=== PATIENT | male | born 1970 | race American Indian/Alaskan Native ===

== ENCOUNTER 2017-12-08 12:14 | Day surgery (SDC) | payer BC ==
[2017-12-08] MEDS ORDERED: NACL 0.9% 1000 ML 1,000 ML ONE (12:45)
[2017-12-08] MEDS ORDERED: DIPRIVAN 10 MG/ML IV ONE ×3 (13:41)
--- NOTE | 2017-12-08 13:47 | Anesthesia Consultation ---
Anesthesia Consult and Med Hx Date of service: 12/08/17 - Airway Anesthetic Teeth Evaluation: Good ROM Head & Neck: Adequate Mallampati Class: Class III Intubation Access Assessment: Possibly Difficult - Pre-Operative Health Status ASA Pre-Surgery Classification: ASA2 Proposed Anesthetic Plan: MAC - Cardiovascular System Hx Hypertension: Yes Hx Coronary Artery Disease: No (high cholesterol) - Endocrine Hx Hyperthyroidism: Yes (s/p thyroidectomy) - Other Systems Hx Obesity: Yes (BMI 38.4)
--- NOTE | 2017-12-08 13:48 | Anesthesia Day of Surgery ---
Anesthesia Day of Surgery - Day of Surgery Patient Examined: Yes Patient H&P Reviewed: Yes Patient is NPO: Yes
[2017-12-08] MEDS ORDERED: NACL 0.9% 1000 ML 1,000 ML IV SCH (14:00)
--- NOTE | 2017-12-08 14:27 | Post Operative Note ---
Pre-op diagnosis: Anemia Post-op diagnosis: same Findings: Normal colonoscopy to mid-ascending colon Procedure: Colonoscopy to mid-ascending colon Anesthesia: ALTAF Surgeon: GEOFFREY [place] Estimated blood loss: none Pathology: none Condition: stable Disposition: same day
[2017-12-08 14:55] VITALS: BP 119/85
--- NOTE | 2017-12-10 12:25 | Operative Report ---
Operative Report Operative Report: Date of procedure: 12/08/2017 Preoperative diagnosis: Anemia Postoperative diagnosis: 1) same as above 2) normal colonoscopy to mid ascending colon Procedure: Colonoscopy to mid ascending colon Surgeon: Jaylen Delgado M.D. Findings: See postoperative diagnoses Anesthesia: MAC EBL: None Pathology: None Description of procedure: Patient was placed in a left lateral decubitus position. He was then sedated intravenously by anesthesia. The colonoscope was inserted into the patient's rectum and the scope was advanced retrograde while directly visualizing his colonic lumen. The prep was adequate. Despite application of abdominal pressure in several sites and repositioning the patient , the colonoscope could not be advanced proximal to his mid ascending colon. I could see down the proximal descending colon and nearly to the cecum but a cecal tumor cannot be completely excluded. The scope was then slowly withdrawn with slow, careful, circumferential visualization of his colonic mucosa. The examination included a retroflex view of his distal rectum. No pathological findings were noted. Insufflated air was aspirated and the scope withdrawn. Patient tolerated the procedure well. He was recovered in the GI suite.
== END 2017-12-08 12:15 | disposition home or self-care (01) ==
LOC: GIO 12:14
PROVIDERS: ATTEND Surgery
DX: D64.9 Anemia, unspecified (principal); I10 Essential (primary) hypertension; E78.00 Pure hypercholesterolemia, unspecified; E05.90 Thyrotoxicosis, unspecified without thyrotoxic crisis or storm; E66.9 Obesity, unspecified; Z68.38 Body mass index [BMI] 38.0-38.9, adult; Z98.890 Other specified postprocedural states
CPT/HCPCS: 45378; J2704; J7030

== ENCOUNTER 2017-12-31 05:58 | Day surgery (SDC) | payer BC ==
[2017-12-31] MEDS ORDERED: NACL BACTERIOSTATIC INFILTRATI ONE (06:41)
[2017-12-31] MEDS ORDERED: NACL 0.9% 1000 ML 1,000 ML IV SCH (07:00)
[2017-12-31] MEDS ORDERED: MARCAINE 0.25% INFILTRATI ONE ×2 (07:16→08:21)
[2017-12-31] MEDS ORDERED: ANCEF/STERILE WATER 2 GM/20 ML IV NR (07:30)
--- NOTE | 2017-12-31 07:31 | Anesthesia Day of Surgery ---
Anesthesia Day of Surgery - Day of Surgery Patient Examined: Yes Patient H&P Reviewed: Yes Patient is NPO: Yes
--- NOTE | 2017-12-31 07:32 | Anesthesia Consultation ---
Anesthesia Consult and Med Hx Date of service: 12/31/17 - Airway Anesthetic Teeth Evaluation: Good ROM Head & Neck: Adequate Mental/Hyoid Distance: Adequate Mallampati Class: Class II Intubation Access Assessment: Probably Good - Pulmonary Exam CTA: Yes - Cardiac Exam Cardiac Exam: RRR - Pre-Operative Health Status ASA Pre-Surgery Classification: ASA3 Proposed Anesthetic Plan: General - Pulmonary Hx Smoking: Yes (QUIT 1998) - Cardiovascular System Hx Hypertension: Yes (10 YEARS) Hx Coronary Artery Disease: No (high cholesterol) - Central Nervous System Hx Psychiatric Problems: No - Endocrine Hx Hypothyroidism: Yes (s/p thyroidectomy) - Other Systems Hx Alcohol Use: Yes (OCCA) Hx Substance Use: No Hx Cancer: No Hx Obesity: Yes (BMI 38.4)
[2017-12-31] MEDS ORDERED: DECADRON ONE (07:37)
[2017-12-31] MEDS ORDERED: ZOFRAN ONE (07:37)
[2017-12-31] MEDS ORDERED: QUELICIN ONE (07:37)
[2017-12-31] MEDS ORDERED: ZEMURON IV ONE (07:37)
[2017-12-31] MEDS ORDERED: SUBLIMAZE ONE (07:37)
[2017-12-31] MEDS ORDERED: DIPRIVAN 10 MG/ML IV ONE (07:38)
[2017-12-31] MEDS ORDERED: HEPARIN SUB-Q NR (07:45)
--- NOTE | 2017-12-31 07:48 | Procedure Note ---
Date of procedure: 12/31/17 Pre-op diagnosis: Incarcerated ventral hernia Post-op diagnosis: same (with incarcerated omentum) Procedure: Open repair with mesh Description of procedure: Pt was placed supine on the OR table. GETA was administered. Abdomen was prepped and draped. Skin at the proposed incision was infiltrated with 8 ml of 0.25% Marcaine. A vertical incision was made over the mass just above and to the left of the umbilicus. The hernia sac was immediately identified. The hernia sac was dissected away from the adjacent SQ tissue and fascia. The hernia sac was entered and contained incarcerated omentum. Hernia sac was excised at the level of the fascia. Omentum was reduced back into the peritoneal cavity. Fascial defect measured 3.0 cm. A large piece of Ventralex mesh was inserted into the peritoneal cavity. This was secured to the fascia with simultaneous closure of the fascial defect with interrupted sutures of 0-Ethibond. Subcutaneous tissue was approximated with a running 3-0 Vicryl. Skin was approximated with a running subcuticular suture of 4-0 Monocryl. Skin glue was applied to the incision followed by dry 4 X 4's and Tegaderm. Pt was extubated in the OR. He was taken to PACU in stable condition. Findings: Incarcerated omentum Anesthesia: GETA Surgeon: GEOFFREY [place] Estimated blood loss: minimal Pathology: list (Hernia sac) Specimen disposition: to lab Condition: stable Disposition: PACU
[2017-12-31] MEDS ORDERED: VERSED IV NR (08:00)
[2017-12-31] MEDS ORDERED: NACL 0.9% IR ONE (08:21)
[2017-12-31] MEDS ORDERED: BLOXIVERZ ONE (09:29)
[2017-12-31] MEDS ORDERED: TORADOL ONE (09:29)
[2017-12-31] MEDS ORDERED: ROBINUL ONE (09:29)
[2017-12-31] MEDS ORDERED: PERCOCET 5/325 PO PRN (10:00)
[2017-12-31] MEDS ORDERED: ZOFRAN IV PRN (10:00)
[2017-12-31] MEDS ORDERED: NARCAN 0.4 MG/1 ML IV PRN (10:00)
[2017-12-31] MEDS ORDERED: DILAUDID IV PRN (10:00)
[2017-12-31] MEDS ORDERED: TORADOL IV PRN (10:00)
[2017-12-31] MEDS: DILAUDID IV PRN ×2 (10:05→10:20)
[2017-12-31] MEDS ORDERED: DILAUDID ONE (10:06)
[2017-12-31 17:30] VITALS: BP 135/91
== END 2017-12-31 12:00 | disposition home or self-care (01) ==
LOC: OR 05:58
PROVIDERS: ATTEND Surgery
DX: K43.6 Other and unspecified ventral hernia with obstruction, without gangrene (principal); E78.00 Pure hypercholesterolemia, unspecified; E89.0 Postprocedural hypothyroidism; E66.9 Obesity, unspecified; I10 Essential (primary) hypertension; Z87.891 Personal history of nicotine dependence; Z98.890 Other specified postprocedural states; Z68.38 Body mass index [BMI] 38.0-38.9, adult
CPT/HCPCS: 36415; 49561; 84132; 88302; C1781; J0330; J0690; J1100; J1170; J1644; J1885; J2250; J2405; J2704; J2710; J3010